=== PATIENT | female | born 1970 | race Caucasian/White ===

== ENCOUNTER → 2017-09-23 | Outpatient (CLI) | payer OTHER | END | disposition home or self-care (01) | LOC: CFH 09:24 | PROVIDERS: ATTEND Genetic Counselor, MS | DX: Z12.31 Encounter for screening mammogram for malignant neoplasm of breast (principal) | CPT/HCPCS: G0202 ==

== ENCOUNTER 2020-01-22 08:31 | Emergency (ER) | payer BC, OTHER ==
[~2020-01-22] VITALS: Ht 160 cm; Wt 76.0 kg
[2020-01-22 10:00] VITALS: BP 167/100
--- NOTE | 2020-01-22 10:03 | NUR ---
PT AMBULATED TO ROOM, CHANGED INTO GOWN, SITTING ON GURNEY, NAD, DENIES ADDITIONAL NEEDS, CALL LIGHT WITHIN REACH, WCTM. DEVONTE FREGOSO MD DISCUSSED PLAN OF CARE WITH PT.
== END 2020-01-22 11:09 | disposition home or self-care (01) ==
LOC: ED 09:30
DX: J06.9 Acute upper respiratory infection, unspecified (principal)
CPT/HCPCS: 71045; 99283

== ENCOUNTER 2021-04-20 06:53 | Emergency (ER) | payer BC ==
[~2021-04-20] VITALS: Ht 157.5 cm; Wt 75.0 kg
[2021-04-20] MEDS ORDERED: MAALOX/HYOSCYAMINE/LIDOCAINE 45 ML BTL ONE (07:24)
[2021-04-20] MEDS ORDERED: FAMOTIDINE 20 MG/2 ML ONE (07:24)
[2021-04-20] MEDS ORDERED: ONDANSETRON 2MG/ML, 2ML ONE (07:24)
[2021-04-20] MEDS ORDERED: SODIUM CHLORIDE 0.9% 1,000ML IVBOLUS ONE (07:30)
[2021-04-20] MEDS ORDERED: METOCLOPRAMIDE 5 MG/ML, 2ML IVPush ONE (07:30)
[2021-04-20] MEDS ORDERED: FAMOTIDINE 20 MG/2 ML IVPush ONE (07:30)
[2021-04-20] MEDS ORDERED: MAALOX/HYOSCYAMINE/LIDOCAINE 45 ML BTL PO ONE (07:30)
[2021-04-20] MEDS ORDERED: ONDANSETRON 2MG/ML, 2ML IVPush ONE (07:30)
[2021-04-20 07:36] LABS: BASOPHILS % (AUTO) 1 % (0-1); EOSINOPHILS % (AUTO) 2 % (1-7); LYMPHOCYTES % (AUTO) 17 % (22-44); MEAN CORPUSCULAR HGB CONC 33.1 g/dL (32.4-35.8); MEAN PLATELET VOLUME 8.3 fL (7.4-10.4); MONOCYTES % (AUTO) 7 % (2-9); NEUTROPHILS % (AUTO) 75 % (42-75); PLATELET COUNT 434 x10^3/uL (130-400); RED BLOOD COUNT 4.64 x10^6/uL (3.82-5.3); RED CELL DISTRIBUTION WIDTH 15.1 % (9.6-15.2)
--- NOTE | 2021-04-20 07:36 | NUR ---
PATIENT WALKED BACK FROM TRIAGE WITH CHIEF C/O "GASTRIC REFLUX" X3 DAYS. PER PATIENT SHE IS UNABLE TO KEEP ANYTHING DOWN, REPORTS VOMITING, DENIES DIARRHEA. NADN, CONNECTED TO MONITOR, VSS, CALL LIGHT WITHIN REACH.
[2021-04-20] MEDS ORDERED: METOCLOPRAMIDE 5 MG/ML, 2ML ONE (07:46)
[2021-04-20 07:48] LABS: ALANINE AMINOTRANSFERASE 23 U/L (12-78); ALBUMIN 3.7 g/dL (3.4-5.0); ANION GAP 5 mmol/L (5-15); CALCIUM 11.5 mg/dL (8.5-10.1); CHLORIDE 103 mmol/L (98-107); CREATININE 1.16 mg/dL (0.55-1.02)
[2021-04-20 07:52] LABS: ALKALINE PHOSPHATASE 67 U/L (45-117); BILIRUBIN,TOTAL 0.4 mg/dL (0.2-1.0); TOTAL PROTEIN 7.6 g/dL (6.4-8.2); TROPONIN I < 0.015 ng/mL (0.000-0.045)
--- NOTE | 2021-04-20 07:54 | NUR ---
20 GAUGE IV STARTED RIGHT AC, PATIENT MEDICATED PER eMAR, EPISODE OF EMESIS, COOL WASH CLOTH PROVIDED FOR COMFORT PER PATIENT REQUEST, CALL LIGHT WITHIN REACH, NO FURTHER NEEDS AT THIS TIME.
--- NOTE | 2021-04-20 08:19 | NUR ---
PATIENT AMBULATED TO BATHROOM WITH STEADY GAIT, PATIENT REPORTS FEELING LESS NAUSEATED AFTER MEDICATION. WAITING FOR XRAY RESULTS.
[2021-04-20 08:51] VITALS: BP 182/100
--- NOTE | 2021-04-20 08:52 | NUR ---
IV removed with tip intact. Patient given discharge instructions and prescription and they have confirmed that they understand the instructions. Patient ambulatory with steady gait. NAD, all questions answered appropriately, denies additional needs at this time. No personal belongings left in room after discharge.
== END 2021-04-20 08:53 | disposition home or self-care (01) ==
LOC: ED 08:45
DX: K29.00 Acute gastritis without bleeding (principal); K21.9 Gastro-esophageal reflux disease without esophagitis; R10.13 Epigastric pain; R11.2 Nausea with vomiting, unspecified; R00.0 Tachycardia, unspecified; E03.9 Hypothyroidism, unspecified; I10 Essential (primary) hypertension; Z90.89 Acquired absence of other organs; Z90.710 Acquired absence of both cervix and uterus; Z90.721 Acquired absence of ovaries, unilateral
CPT/HCPCS: 36415; 71045; 80053; 83690; 84484; 85025; 93005; 96361; 96374; 96375; 99285; J2765; J7030